=== PATIENT | female | born 2000 | race Caucasian/White ===

== ENCOUNTER 2019-09-10 17:00 | Day surgery (SDC) | payer BC ==
[2019-09-10 17:31] VITALS: BP 131/87; TEMP 98.2; BMI 23.6
[2019-09-10] MEDS ORDERED: hydrALAZINE 20 MG/ML VIAL SLOW IVP PRN (17:37)
--- NOTE | 2019-09-10 17:41 | PDOC.LDHP ---
Labor and Delivery H&P Chief complaint: other (vag dsch (no LOF)) HPI: Patient of Dr Song 26 weeks 3 days Patient here for "discharge" but denies UTI sxs, LOF, VB. States it is mucus like but denies gush of fluid. No fevers, no CTS, good FM Current gestational age (weeks): 26 (3 days) Due date: 12/14/19 Dating criteria: last menstrual period Grav: 1 Current complications: none Abnormal US findings: No Current medications: pre- vitamins Previous surgical history: none Allergies/Adverse Reactions: Allergies Allergy/AdvReac Type Severity Reaction Status Date / Time No Known Allergies Allergy Verified 09/10/19 17:22 Social history: none - Physical Exam Vital signs reviewed and normal: yes (131/87 97 18) General: NAD Heart: RRR Lungs: CTAB Abdomen: gravid Extremeties: no edema - Assessment [facility] at 26 weeks, do not suspect LOF - Plan Plan: observation in L&D (Ordered VP3 and TVUS to cx cervix. I did not order as I do not suspect LOF)
--- NOTE | 2019-09-10 18:54 | PDOC.EVN ---
Event Note - Event Note Event Note: CX length normal at 3.8cm VP3 pending
--- NOTE | 2019-09-10 19:06 | ULT ---
Exam: Limited Transabdominal and endovaginal pelvic ultrasound HISTORY:Evaluate cervical length COMPARISON:None TECHNIQUE: Transabdominal and endovaginal imaging of the pelvis is performed. FINDINGS: Single intrauterine gestation, vertex presentation Anterior placenta. No previa Cervix measuring 3.8 cm. Possible small amount of fluid in the cervical canal heart tones: 133 bpm Amniotic fluid index 14.5 cm IMPRESSION: 1. Cervix measuring 3.8 cm
--- NOTE | 2019-09-10 19:28 | PDOC.EVN ---
Event Note - Event Note Event Note: VP3 clear
== END 2019-09-10 19:30 | disposition home or self-care (01) ==
LOC: L&D/OP 17:00
DX: O99.89 Other specified diseases and conditions complicating pregnancy, childbirth and the puerperium (principal); N89.8 Other specified noninflammatory disorders of vagina; Z3A.26 26 weeks gestation of pregnancy
CPT/HCPCS: 76856; 87480; 87510; 87660

== ENCOUNTER 2019-12-10 22:15 | Day surgery (SDC) | payer BC, OTHER ==
[2019-12-10 22:48] VITALS: BP 127/78; TEMP 98.2; BMI 27.1
[2019-12-10] MEDS ORDERED: hydrALAZINE 20 MG/ML VIAL SLOW IVP PRN (23:15)
--- NOTE | 2019-12-10 23:27 | PDOC.BPN ---
- Brief Progress Note Patient seen at bedside. Comfortable. I palpated uterine fundus..mild CTX, soft in between. She is comfortable going home as no CX change. OK to go home at this time. Close follow up.
--- NOTE | 2019-12-10 23:37 | HP ---
It is now 2317. Time of evaluation was roughly 2310. LOCATION: Labor and Delivery Triage bed 3. REASON FOR EVALUATION: Possible contractions. HISTORY OF PRESENT ILLNESS: This is a 19-year-old, G1, P0, at 38 weeks and 1 day, here for contractions. She states that they are about every 5 to 7 minutes. She denies vaginal bleeding or leakage of fluid. She has good movement. She denies fever or recent trauma. REVIEW OF SYSTEMS: Complete review of systems was checked and is otherwise negative unless specified in the HPI. PAST MEDICAL HISTORY: Negative. PAST SURGICAL HISTORY: Noncontributory. OB HISTORY: She is G1, P0. She was last checked in the office and was about 2 cm. SOCIAL HISTORY: Negative. ALLERGIES: NONE. PHYSICAL EXAMINATION: VITAL SIGNS: Her BMI is 27, blood pressure is 128/73, temperature is 98.2, pulse is 94, and respirations are 18 and nonlabored. GENERAL: She is in no acute distress, but has some contraction discomfort. PELVIS: Uterus is soft and nontender. There is no gross evidence of bleeding or leakage of fluid. Cervical exam is 1 to 2 cm, about 90% effaced, -1 station. External monitor shows reactive heart tones in the 130s to 140s with contractions about every 5 to 6 minutes. ASSESSMENT: This is a G1, P0, at 38 weeks and 1 day (early term) with latent labor. She is not significantly changed from her last exam in the office. PLAN: 1. Observation and recheck her cervix in about 1 hour or so. 2. Pain meds offered. 3. Reassurance given. Job ID: [id number]
== END 2019-12-10 23:35 | disposition home or self-care (01) ==
LOC: L&D/OP 22:15
PROVIDERS: ATTEND Obstetrics & Gynecology
DX: O47.1 False labor at or after 37 completed weeks of gestation (principal); Z3A.38 38 weeks gestation of pregnancy
CPT/HCPCS: 99282

== ENCOUNTER 2019-12-11 12:17 | Inpatient (IN) | payer BC, OTHER ==
[2019-12-11 12:46] VITALS: BMI 27.1
[2019-12-11] MEDS ORDERED: Bupivacaine 0.25% HCL 30 ML VIAL ONE (13:08)
[2019-12-11 13:32] LABS: Amnisure Internal Control QC ACCEPTABLE (ACCEPTABLE); Amnisure Test RUPTURE DETECTED (No Rupture)
[2019-12-11] MEDS ORDERED: hydrALAZINE 20 MG/ML VIAL SLOW IVP PRN (13:51)
[2019-12-11] MEDS ORDERED: Promethazine HCl 25 MG/ML VIAL IM PRN ×2 (13:51→17:06)
[2019-12-11] MEDS ORDERED: Lidocaine 1% (PF) 30 ML VIAL SC PRN (13:51)
[2019-12-11] MEDS ORDERED: Ibuprofen 800 MG TAB PO PRN (13:51)
[2019-12-11] MEDS ORDERED: Ondansetron PF 4 MG/2 ML Vial IVP PRN ×2 (13:51→17:06)
[2019-12-11] MEDS ORDERED: NS / Oxytocin 40 units/1000ml 1,000 ML IV PRN (13:51)
[2019-12-11] MEDS ORDERED: HYDROcodone/Acetaminophen 5/325 mg Tablet PO PRN (13:51)
[2019-12-11] MEDS ORDERED: Butorphanol Tartrate 1 MG/ML VIAL SLOW IVP PRN (13:51)
[2019-12-11] MEDS ORDERED: NS w/ Oxytocin 10 units 500 ML IV SCH (14:30)
[2019-12-11 14:57] LABS: Hemoglobin 12.5 g/dL (12.0-16.0); Mean Corpuscular HGB CONC 33.6 g/dL (32.0-36.0); Mean Corpuscular Hemoglobin 31.7 pg (27.0-31.0); Mean Corpuscular Volume 94.4 fL (78.0-98.0); Platelet Count 292 thou/uL (130-400); RBC Distribution Width 12.5 % (11.5-14.5); Red Blood Cell (RBC) Count 3.96 mill/uL (4.20-5.40); White Blood Cell (WBC) Count 17.6 thou/uL (4.8-10.8)
[2019-12-11] MEDS: Lactated Ringer's 1,000 ML IV SCH ×2 (15:11→17:30)
[2019-12-11 15:37] LABS: HBSAg Index 0.11 S/CO (0-0.99); Hep B Surf Ag Non-Reactive S/CO (NonReactive); Syphilis Antibody Nonreactive (Nonreactive); Syphilis Antibody Index 0.05 S/CO (<1.00 Non-Reactive)
[2019-12-11] MEDS ORDERED: Fentanyl 4 mcg/Bup 0.1% Cadd 100 ML ONE (16:11)
[2019-12-11] MEDS ORDERED: diphenhydrAMINE 50 MG/ML VIAL IVP PRN (17:06)
[2019-12-11] MEDS ORDERED: EPHEDRINE 25 MG/5 ML SYRINGE SLOW IVP PRN (17:06)
[2019-12-11] MEDS ORDERED: Lactated Ringer's 500 ML IV PRN (17:06)
[2019-12-11] MEDS ORDERED: Naloxone HCl 0.4 mg/ml Vial IVP PRN ×2 (17:06)
[2019-12-11] MEDS ORDERED: Acetaminophen 325 MG TAB PO PRN (17:06)
[2019-12-11] MEDS ORDERED: Communication Order-Pharmacy FS SCH (17:15)
[2019-12-11] MEDS ORDERED: Fentanyl 4 mcg/Bupivacaine 0.1% Cassette 100 ML EPIDURAL SCH (17:15)
[2019-12-11] MEDS: Dextrose 5%-Lactated Ringers 1,000 ML IV SCH (18:25)
--- NOTE | 2019-12-11 20:38 | PDOC.EVN ---
Event Note - Event Note Event Note: Nursing staff has had difficulty increasing pitocin to levels sufficient to augment labor. Forebag arom and fluid was bloody. iupc and fse placed. temp 99.7 (srom 0300) fetus with baseline 150's without minimal variabilty at the moment. pitocin is off. Will resume augmentation once csection in the back is finished.
[2019-12-11] MEDS ORDERED: Ampicillin 2 GM in Sodium Chloride 0.9% 100 ML IVPB SCH (22:00)
[2019-12-12] MEDS ORDERED: Misoprostol 200 MCG TAB ONE (00:12)
[2019-12-12] MEDS ORDERED: NS / Oxytocin 40 units/1000ml 1,000 ML IV SCH (03:11)
[2019-12-12] MEDS ORDERED: Lanolin Ointment 7 GM TUBE TOP PRN (03:11)
[2019-12-12] MEDS ORDERED: Milk Of Magnesia 30 ML UDCUP PO PRN (03:11)
[2019-12-12] MEDS ORDERED: hydrALAZINE 20 MG/ML VIAL SLOW IVP PRN (03:11)
[2019-12-12] MEDS ORDERED: Bisacodyl 10 MG SUPP PR PRN (03:11)
--- NOTE | 2019-12-12 03:20 | DN ---
DATE OF PROCEDURE: 12/12/2019 Patient delivered a female at 0058 hours on 12/12/2019. Apgars eight and nine. Weight unavailable at the time of dictation. Placenta delivered spontaneously followed by Pitocin infusion. There were no lacerations. ESTIMATED BLOOD LOSS: 200 mL. Quantitative blood loss pending. DELIVERING PHYSICIANS: Dr. Terrell Farley and Dr. Thomas Aguilar. COMPLICATIONS: None. COUNTS: Correct. CONDITION: Mother and baby are stable in the room in the immediate . Job ID: [id number]
[2019-12-12] MEDS: Dextrose 5%-Lactated Ringers 1,000 ML IV SCH ×3 (04:16→22:26)
[2019-12-12] MEDS: Ibuprofen 800 MG TAB PO SCH ×3 (05:34→22:28)
[2019-12-12 06:14] LABS: Hemoglobin 11.1 g/dL (12.0-16.0)
[2019-12-12] MEDS: Prenatal Vitamin 1 TAB PO SCH (08:14)
[2019-12-12] MEDS: Docusate Calcium (SURFAK) 240 MG CAP PO SCH ×2 (08:14→22:28)
[2019-12-12] MEDS: Ferrous Sulfate 325 MG TAB PO SCH ×2 (08:15→17:12)
[2019-12-12] MEDS ORDERED: Adacel (T-DAP) 0.5 ML SYRINGE IM ONE (09:00)
[2019-12-12] MEDS ORDERED: Saccharomyces boulardii 250 MG CAP PO SCH (14:30)
[2019-12-13] MEDS: Ibuprofen 800 MG TAB PO SCH ×3 (06:00→14:20)
[2019-12-13] MEDS: Dextrose 5%-Lactated Ringers 1,000 ML IV SCH ×3 (06:01→15:58)
--- NOTE | 2019-12-13 06:32 | PDOC.PP ---
Post Progress Note Post Day #: 1 Subjective: Doing well this morning, no complaints. PO intake tolerated: yes Ambulation: yes Vital Signs (12 hours) Temp Pulse Resp BP Pulse Ox 12/13/19 05:00 98.0 F 85 17 115/65 12/12/19 20:00 98.3 F 105 H 17 130/63 98 Weight Weight 158 lb - Physical Examination General: NAD Respiratory: non-labored breathing Abdominal: lochia (normal), no distention, appropriately TTP Fundus firm & at: below umbilicus Neurological: no gross focal deficits Psychiatric: A&Ox3, normal affect Result Diagrams: 12/12/19 05:42 Additional Labs: Post Labs Blood Type O POSITIVE 12/11/19 15:22 Hep Bs Antigen Non-Reactive S/CO (NonReactive) 12/11/19 14:40 (1) (spontaneous vaginal delivery) Code(s): O80 - ENCOUNTER FOR FULL-TERM UNCOMPLICATED DELIVERY Status: Acute - Assessment/Plan Continue routine PP care. Anticipate d/c tomorrow.
[2019-12-13] MEDS: Ferrous Sulfate 325 MG TAB PO SCH ×2 (08:50→15:53)
[2019-12-13] MEDS: Docusate Calcium (SURFAK) 240 MG CAP PO SCH (08:51)
[2019-12-13] MEDS: Prenatal Vitamin 1 TAB PO SCH (08:51)
[2019-12-13] MEDS ORDERED: Saccharomyces boulardii 250 MG CAP PO SCH (09:00)
[2019-12-13 10:10] VITALS: BP 108/60; TEMP 98.2
[2019-12-13 11:48] LABS: SARS-CoV-2 MS2 Positive; SARS-CoV-2 N Gene Negative; SARS-CoV-2 S Gene Negative; SARS-CoV-2 by NAA Not Detected (NotDetected); SARS-CoV-2 orf1ab Negative
== END 2019-12-13 18:00 | disposition home or self-care (01) | DRG 807 ==
LOC: L&D/OP 12:17 → L&D 16:11 → 3SW 12-12 03:32
PROVIDERS: ADMIT Obstetrics & Gynecology; ATTEND Obstetrics & Gynecology
PROC: 10E0XZZ Delivery of Products of Conception, External Approach (ICD-10-PCS; principal; 2019-12-12)
DX: O80 Encounter for full-term uncomplicated delivery (principal); Z37.0 Single live birth; Z3A.38 38 weeks gestation of pregnancy
CPT/HCPCS: 36415; 51702; 84112; 85014; 85018; 85027; 86780; 86850; 86900; 86901; 87340; 87635; 99282; 99285; J0290; J1580; J2590; J3490; S0020; U0003